=== PATIENT | female | born 1965 | race Caucasian/White ===

== ENCOUNTER 2016-05-20 06:34 | Emergency (ER) | payer OTHER ==
[2016-05-20] MEDS ORDERED: KETOROLAC 60 MG/2 ML VIAL IM STA (07:16)
--- NOTE | 2016-05-20 07:16 | ED ---
General Adult HPI - General Chief complaint: Back Pain/Injury Stated complaint: back pain Time Seen by Provider: 05/20/16 07:00 Source: patient, RN notes reviewed Mode of arrival: ambulatory Limitations: no limitations - History of Present Illness Initial comments: This is a 50-year-old female who presents to the emergency department complaining of some right-sided mid back pain. Patient states his been intermittent all week long and she thinks it might be from her bookbag because she is going to school currently. Patient states if it wasn't from the bookbag back she thinks she would have a urinary tract infection so she has no dysuria hematuria or urinary frequency. Patient denies any nausea or vomiting. Patient denies any recent fever or chills. Patient states she's already had a cholecystectomy. Patient denies any headache patient denies chest pain difficulty breathing or shortness of breath. Patient denies any cough or cold- like symptoms. 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 - Related Data Home Medications Medication Instructions Recorded Confirmed No Known Home Medications [No 05/20/16 05/20/16 Known Home Medications] Allergies Allergy/AdvReac Type Severity Reaction Status Date / Time No Known Allergies Allergy Verified 05/20/16 06:40 Review of Systems ROS Statement: Those systems with pertinent positive or pertinent negative responses have been documented in the HPI. ROS Other: All systems not noted in ROS Statement are negative. Past Medical History Past Medical History: Hypertension History of Any Multi-Drug Resistant Organisms: MRSA Date of last positivie culture/infection: 2012 MDRO Source:: Left axillary Past Surgical History: Breast Surgery, Cholecystectomy Past Psychological History: No Psychological Hx Reported Smoking Status: Never smoker Past Alcohol Use History: None Reported Past Drug Use History: None Reported General Exam - General Exam Comments Initial Comments: GENERAL: Patient is well-developed and well-nourished. Patient is nontoxic and well- hydrated and is in mild distress. ENT: Neck is soft and supple. No significant lymphadenopathy is noted. Oropharynx is clear. Moist mucous membranes. Neck has full range of motion without eliciting any pain. EYES: The sclera were anicteric and conjunctiva were pink and moist. Extraocular movements were intact and pupils were equal round and reactive to light. Eyelids were unremarkable. PULMONARY: Unlabored respirations. Good breath sounds bilaterally. No audible rales rhonchi or wheezing was noted. CARDIOVASCULAR: There is a regular rate and rhythm without any murmurs gallops or rubs. ABDOMEN: Soft and nontender with normal bowel sounds. No palpable organomegaly was noted. There is no palpable pulsatile mass. SKIN: Skin is clear with no lesions or rashes and otherwise unremarkable. NEUROLOGIC: Patient is alert and oriented x3. Cranial nerves II through XII are grossly intact. Motor and sensory are also intact. Normal speech, volume and content. Symmetrical smile. MUSCULOSKELETAL: Normal extremities with adequate strength and full range of motion. LYMPHATICS: No significant lymphadenopathy is noted PSYCHIATRIC: Normal psychiatric evaluation. Normal interpersonal interactions appears functionally intact in deals appropriately with others. No signs of depression. No signs of anxiety. Limitations: no limitations Course Vital Signs 05/20/16 06:36 Temperature 97 F L Pulse Rate 70 Respiratory 20 Rate Blood Pressure 144/80 O2 Sat by Pulse 98 Oximetry Medical Decision Making - Lab Data Result diagrams: 05/20/16 07:37 05/20/16 07:37 Lab Results 05/20/16 05/20/16 05/20/16 Range/Units 07:37 07:37 07:52 WBC 6.0 (3.8-10.6) k/uL RBC 4.67 (3.80-5.40) m/uL Hgb 13.6 (11.4-16.0) gm/dL Hct 40.3 (34.0-46.0) % MCV 86.3 (80.0-100.0) fL MCH 29.1 (25.0-35.0) pg MCHC 33.7 (31.0-37.0) g/dL RDW 12.1 (11.5-15.5) % Plt Count 297 (150-450) k/uL Neutrophils % 62 % Lymphocytes % 27 % Monocytes % 8 % Eosinophils % 1 % Basophils % 1 % Neutrophils # 3.7 (1.3-7.7) k/uL Lymphocytes # 1.6 (1.0-4.8) k/uL Monocytes # 0.5 (0-1.0) k/uL Eosinophils # 0.1 (0-0.7) k/uL Basophils # 0.1 (0-0.2) k/uL Sodium 142 (137-145) mmol/L Potassium 3.9 (3.5-5.1) mmol/L Chloride 105 (98-107) mmol/L Carbon Dioxide 26 (22-30) mmol/L Anion Gap 11 mmol/L BUN 12 (7-17) mg/dL Creatinine 0.57 (0.52-1.04) mg/dL Est GFR (MDRD) Af Amer >60 (>60 ml/min/1.73 sqM) Est GFR (MDRD) Non-Af >60 (>60 ml/min/1.73 sqM) Glucose 93 (74-99) mg/dL Calcium 9.6 (8.4-10.2) mg/dL Total Bilirubin 0.6 (0.2-1.3) mg/dL AST 24 (14-36) U/L ALT 37 (9-52) U/L Alkaline Phosphatase 58 (38-126) U/L Total Protein 6.7 (6.3-8.2) g/dL Albumin 4.1 (3.5-5.0) g/dL Urine Color Colorless Urine Appearance Clear (Clear) Urine pH 6.5 (5.0-8.0) Ur Specific Clarinda 1.002 (1.001-1.035) Urine Protein Negative (Negative) Urine Glucose (UA) Negative (Negative) Urine Ketones Negative (Negative) Urine Blood Negative (Negative) Urine Nitrate Negative (Negative) Urine Bilirubin Negative (Negative) Urine Urobilinogen <2.0 (<2.0) mg/dL Ur Leukocyte Esterase Negative (Negative) Disposition Clinical Impression: Thoracic myofascial strain Disposition: HOME SELF-CARE Condition: Good Instructions: Thoracic Back Strain (ED) Additional Instructions: Patient should take Motrin 600 mg every 6 hours. Referrals: None,Stated [Primary Care Provider] - 1-2 days Time of Disposition: 08:31
[2016-05-20 08:06] LABS: Basophils # (A) 0.1 k/uL (0-0.2); Basophils % (A) 1 %; CH 30.3; CHCM 35.3; Eosinophils # (A) 0.1 k/uL (0-0.7); Eosinophils % (A) 1 %; HCT 40.3 % (34.0-46.0); HDW 2.53; HGB 13.6 gm/dL (11.4-16.0); Luc # (Auto) 0.11; Luc % (Auto) 2; Lymphocytes # (A) 1.6 k/uL (1.0-4.8); Lymphocytes % (A) 27 %; MCH 29.1 pg (25.0-35.0); MCHC 33.7 g/dL (31.0-37.0); MCV 86.3 fL (80.0-100.0); Mean Platelet Volume 7.1; Monocytes # (A) 0.5 k/uL (0-1.0); Monocytes % (A) 8 %; Neutrophils # (A) 3.7 k/uL (1.3-7.7); Neutrophils % (A) 62 %; RBC 4.67 m/uL (3.80-5.40); RDW 12.1 % (11.5-15.5); WBC (Perox) 6.16
[2016-05-20 08:08] LABS: Appearance,Urine Clear (Clear); Bilirubin,Urine Negative (Negative); Glucose,Urine (UA) Negative (Negative); Ketones,Urine Negative (Negative); Leukocyte Esterase,Urine Negative (Negative); Nitrite,Urine Negative (Negative); PH, Urine 6.5 (5.0-8.0); Protein,Urine Negative (Negative); Specific Gravity,Urine 1.002 (1.001-1.035); UA Billing (MACRO vs. MICRO) CHEM; Urobilinogen,Urine <2.0 mg/dL (<2.0)
[2016-05-20 08:13] LABS: ALT 37 U/L (9-52); AST 24 U/L (14-36); Alkaline Phosphatase 58 U/L (38-126); Anion Gap 11 mmol/L; Blood Urea Nitrogen 12 mg/dL (7-17); Calcium 9.6 mg/dL (8.4-10.2); Carbon Dioxide 26 mmol/L (22-30); Chloride 105 mmol/L (98-107); Glucose 93 mg/dL (74-99); Non-African American GFR(MDRD) >60 (>60 ml/min/1.73 sqM); Potassium 3.9 mmol/L (3.5-5.1); Sodium 142 mmol/L (137-145); Total Bilirubin 0.6 mg/dL (0.2-1.3); Total Protein 6.7 g/dL (6.3-8.2)
[2016-05-20 08:39] VITALS: BP 125/59; PULSE 60; RESP 18; TEMP 97.2
== END 2016-05-20 08:39 | disposition home or self-care (01) ==
LOC: EC 06:34
DX: S29.019A Strain of muscle and tendon of unspecified wall of thorax, initial encounter (principal); X58.XXXA Exposure to other specified factors, initial encounter; I10 Essential (primary) hypertension
CPT/HCPCS: 36415; 80053; 85025; 81003; 96372; 99283; J1885

== ENCOUNTER 2016-06-08 09:29 | Day surgery (SDC) | payer OTHER ==
[2016-06-05 15:20] VITALS: BMI 28.5
[~2016-06-08 09:29] MED LIST: LACTATED RINGERS 1,000 ML IV SCH; LIDOCAINE 1% 20 ML VIAL (10MG/ML) FOR IV START INTRADERMA PRN
[2016-06-08 10:06] VITALS: RESP 16; TEMP 98
[2016-06-08] MEDS ORDERED: fentaNYL (PF) 50 MCG/ML 2 ML AMP IV ONE (10:25)
[2016-06-08] MEDS ORDERED: MIDAZOLAM 2 MG/2 ML VIAL ONE (10:51)
[2016-06-08] MEDS ORDERED: fentaNYL (PF) 50 MCG/ML 2 ML AMP ONE (10:51)
[2016-06-08] MEDS ORDERED: PROPOFOL 10 MG/ML 20 ML VIAL IV ONE (10:51)
--- NOTE | 2016-06-08 11:23 | P.PCN ---
Date of Procedure: 06/08/16 Procedure(s) Performed: Procedure: 1. Esophagogastroduodenoscopy and biopsy. 2. Total colonoscopy. Preoperative diagnosis: Dysphagia and screening colonoscopy. Postoperative diagnosis: 1. Small sliding hiatal hernia with no obvious esophagitis or complicated reflux disease. 2. Mild antral gastritis. 3. Colon exam within normal limits. Preparation: HalfLytely prep. Sedation: Was provided by anesthesia. Brief clinical history: The patient is a 50-year-old female who is referred for this evaluation because of recent onset of dysphagia as well as for screening for colon cancer. She had a prior colonoscopy in 2007 or 2008. The patient has no abdominal complaints, bleeding or anemia. Procedure: With the patient on her left lateral decubitus position and after informed consent and adequate sedation, I passed the Olympus-GIF 160 video upper endoscope through the cricopharyngeus down the esophagus. GE junction was around 37-38 cm from the incisors and there was a small sliding hiatal hernia. The esophagus did not show any obvious erosions, ulcers, strictures or Leahy's esophagus. The endoscope was then passed into the stomach which was insufflated with air and inspected in detail including the retroflex view in the cardia. There was some minimal mottling and erythema in the antrum but no ulcers or erosions. Pyloric channel did not show any ulcers. Duodenal bulb, post bulbar area and descending duodenum showed minimal erythema. I obtained multiple biopsies from the duodenum, antrum and esophagus then the endoscope was withdrawn and I proceeded with the colonoscopy. Perianal area did not show any fissures or fistulas. There were no masses felt on digital rectal examination. The Olympus CFQ 160L video colonoscope was then inserted in the rectum in the usual fashion and advanced to the cecum. The mucosa appeared healthy. No polyps or tumors were seen or any obvious diverticular disease or other pathology. I retroflexed endoscope in the rectum before the endoscope was withdrawn. The patient tolerated the procedure well. Plan: The patient was reassured. Will await pathology results. Further plans can be made based on her course and biopsy results. She will follow-up with you as planned and I will be happy to see in the office of his symptoms persist.
[2016-06-08 11:56] VITALS: BP 126/88; PULSE 69
== END 2016-06-08 12:05 | disposition home or self-care (01) ==
LOC: ORWHC2ENDO 09:29
DX: Z12.11 Encounter for screening for malignant neoplasm of colon (principal); K29.50 Unspecified chronic gastritis without bleeding; K44.9 Diaphragmatic hernia without obstruction or gangrene; R13.10 Dysphagia, unspecified; I10 Essential (primary) hypertension; Z79.1 Long term (current) use of non-steroidal anti-inflammatories (NSAID); Z79.899 Other long term (current) drug therapy; Z91.040 Latex allergy status; Z91.013 Allergy to seafood
CPT/HCPCS: 88305; 88342; 43239; J2250; J3010; J2704; G0121; 99153

== ENCOUNTER → 2017-01-03 | Outpatient (CLI) | payer OTHER ==
[2017-01-03 11:35] LABS: Hepatitis B Surface Ag Index 0.04
[2017-01-03 11:53] LABS: Hepatitis C Virus IgG Ab Negative (Negative); Hepatitis C Virus IgG Index 0.01
--- NOTE | 2017-01-03 15:17 | WWHP ---
[facility] - HISTORY AND PHYSICAL DATE OF SERVICE: 01/03/2017 CHIEF COMPLAINT: The patient is here for her routine gynecologic exam. HPI: This is a 51-year-old, G6, P5-0-1-4 with an LMP of 2012. The patient denies any postmenopausal bleeding. She states she has been experiencing abdominal bloating and slight cramping during the past 1 month. She states it feels like her period is about to start. The patient is otherwise without gynecologic complaints. PAST MEDICAL HISTORY: Depression. MEDICATIONS: 1. Ranitidine 150 mg q. day p.r.n. 2. Multivitamin 1 daily. ALLERGIES: SHELLFISH and LATEX. PAST SURGICAL HISTORY: Colonoscopy in 2010 and 2016, breast augmentation surgery with saline implants 2002, section 2004, laparoscopic cholecystectomy 2007, cold knife conization of the cervix 1997. PAST W[employer] C[employer]ER HISTORY: She had a cold knife conization of the cervix in 1997. She has no other history of STDs. SOCIAL HISTORY: She denies tobacco, alcohol, and drug use. She is and has not been sexually active since she was last seen on 06/30/2015. 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 FAMILY HISTORY: Father had diabetes and heart disease. Grandmother had diabetes. REVIEW OF SYSTEMS: She has gained about 11 pounds over the last year. She denies respiratory, cardiac or GI problems. PHYSICAL EXAM: Blood pressure 131/76, height 5 feet 4 inches, weight 169 pounds. Temperature 98.5, pulse 69. This is a well-developed, well-nourished white female who is alert and oriented x3, in no acute distress. HEENT is within normal limits. NECK: Supple without mass or thyromegaly. CHEST AND LUNGS: Clear to auscultation. HEART: Regular rate and rhythm. Breasts are without mass or discharge and are consistent with bilateral implants. Axillary exam is negative for adenopathy. Back negative for CVA tenderness. ABDOMEN: Soft, nontender, without palpable masses. PELVIC EXAM: Normal external genitalia. Cervix and vagina appear normal. There is mild atrophy and there is no unusual discharge. There is no cervical motion tenderness. The uterus is mid position, nongravid size and nontender. There are no palpable adnexal masses; however, there is mild right adnexal tenderness with deep palpation. Rectovaginal exam is negative for mass or tenderness is negative for occult blood. EXTREMITIES: Nontender. IMPRESSION: 1. A 51-year-old menopausal female with mild right adnexal tenderness without a palpable mass. 2. One-month history of abdominal bloating. 3. Negative STD testing last year after possible STD exposure. She has not been sexually active since her last examination on 06/30/2015. PLAN: 1. Pap smear was deferred since she had a normal one last year. 2. Self breast examination was discussed. 3. Mammogram is due and a slip was give to the patient for this. 4. STD blood screening tests were recommended and this will include HIV, hepatitis B surface antigen, hepatitis C antibody and RPR. This will be done because her testing was done soon after her possible STD exposure and she understands that it may be more than 6 months before certain tests may turn positive, so these will be repeated. 5. Pelvic ultrasound will be scheduled because of the abdominal bloating. 6. Osteoporosis prevention was discussed. 7. She will return in 1 year. MMODL / IJN: [id number] /
[2017-01-03 15:40] LABS: Treponemal Ab Non-Reactive (Non-Reactive)
== END | disposition home or self-care (01) ==
LOC: WWCWWP 09:26
PROVIDERS: ATTEND Obstetrics & Gynecology
DX: Z11.3 Encounter for screening for infections with a predominantly sexual mode of transmission (principal)
CPT/HCPCS: 36415; 86780; 86803; 87340; 87390

== ENCOUNTER → 2017-01-16 | Outpatient (CLI) | payer OTHER ==
--- NOTE | 2017-01-16 09:37 | US ---
EXAMINATION TYPE: US pelvic complete DATE OF EXAM: 01/16/2017 COMPARISON: NONE CLINICAL HISTORY: R68.89 ABN PELVIC PAIN,R14.0 ABD BLOATING. Pt states RLQ tenderness and bloating TECHNIQUE: Transabdominal (TA) Date of LMP: 3 years ago EXAM MEASUREMENTS: Uterus: 6.9 x 3.2 x 4.2 cm Endometrial Stripe: 0.4 cm Right Ovary: 2.1 x 0.9 x 1.5 cm Left Ovary: 2.0 x 1.1 x 1.8 cm 1. Uterus: Anteverted Appeared wnl 2. Endometrium: wnl 3. Right Ovary: wnl 4. Left Ovary: wnl 5. Bilateral Adnexa: wnl 6. Posterior cul-de-sac: wnl, bowel visualized IMPRESSION: 1. No acute process.
--- NOTE | 2017-01-18 07:55 | MM ---
Reason for exam: screening (asymptomatic). Last mammogram was performed 1 year and 7 months ago. History: Patient is postmenopausal. Implants in both breasts, 2003. Physical Findings: A clinical breast exam by your physician is recommended on an annual basis and results should be correlated with mammographic findings. MG Screening Mammo Implant/CAD Bilateral CC, MLO, and ID view(s) were taken. Prior study comparison: June 30, 2015, bilateral MG screening mammo implant/CAD. April 28, 2014, bilateral MG screening mammo w CAD. The breast tissue is heterogeneously dense. This may lower the sensitivity of mammography. Bilateral saline implants. ASSESSMENT: Negative, BI-RAD 1 RECOMMENDATION: Routine screening mammogram of both breasts in 1 year.
== END | disposition home or self-care (01) ==
LOC: RADUSWWP 08:55
PROVIDERS: ATTEND Obstetrics & Gynecology
DX: Z12.31 Encounter for screening mammogram for malignant neoplasm of breast (principal); R14.0 Abdominal distension (gaseous); R10.819 Abdominal tenderness, unspecified site
CPT/HCPCS: 76856; G0202

== ENCOUNTER 2017-07-14 19:45 | Emergency (ER) | payer OTHER ==
[2017-07-14 20:06] VITALS: BP 144/99; PULSE 105; RESP 20; TEMP 99.4
--- NOTE | 2017-07-14 20:23 | ED ---
ENT HPI - General Chief complaint: ENT Stated complaint: Ear pain Time Seen by Provider: 07/14/17 20:13 Source: patient Mode of arrival: ambulatory Limitations: no limitations - History of Present Illness Initial comments: 52-year-old female patient presents to the emergency department today for complaints of right ear discomfort and a tickling sensation. She is concerned there might be a bug in her ear. Patient states that she has had this tickly pokey sensation for the last 3 days. States that that sensation did resolve today but she did start having right ear discomfort. Patient states the discomfort extends below the ear. She denies any drainage from the ear. She denies any sore throat or cough. States that she does have chronic nasal congestion due to seasonal ALLERGIES. She denies any fevers or chills. Denies any headache. Patient denies any recent rash, shortness breath, chest pain, abdominal pain, nausea, vomiting, diarrhea, constipation, back pain, numbness, tingling, dizziness, weakness, hematuria, dysuria, urinary urgency, urinary frequency, headache, visual changes, or any other complaints. - Related Data Home Medications Medication Instructions Recorded Confirmed Cetirizine HCl [Zyrtec] 10 mg PO DAILY 06/05/16 06/08/16 Cyclobenzaprine [Flexeril] 10 mg PO DAILY PRN 06/05/16 06/08/16 Ibuprofen [Motrin] 400 mg PO BID 06/05/16 06/08/16 Omeprazole [PriLOSEC] 20 mg PO AC-BID 06/05/16 06/08/16 diphenhydrAMINE HCL [Benadryl] 25 mg pe PO DAILY PRN 06/05/16 06/08/16 Previous Rx's Medication Instructions Recorded Amoxicillin/Potassium Clav 1 tab PO Q12HR #20 tab 03/30/17 [Augmentin 875-125 Tablet] predniSONE 50 mg PO DAILY #5 tab 03/30/17 Allergies Allergy/AdvReac Type Severity Reaction Status Date / Time latex Allergy Rash/Hives Verified 07/14/17 20:06 shellfish derived [Shellfish] Allergy Nausea & Verified 07/14/17 20:06 Vomiting, Hives Review of Systems ROS Statement: Those systems with pertinent positive or pertinent negative responses have been documented in the HPI. ROS Other: All systems not noted in ROS Statement are negative. Past Medical History Past Medical History: Hypertension Additional Past Medical History / Comment(s): difficulty swallowing History of Any Multi-Drug Resistant Organisms: MRSA Date of last positivie culture/infection: 2012 MDRO Source:: Left axillary Past Surgical History: Breast Surgery, Cholecystectomy Past Anesthesia/Blood Transfusion Reactions: Motion Sickness Past Psychological History: No Psychological Hx Reported Smoking Status: Never smoker Past Alcohol Use History: None Reported Past Drug Use History: None Reported - Past Family History Brother(s) Family Medical History: Deep Vein Thrombosis (DVT) General Exam Limitations: no limitations General appearance: alert, in no apparent distress, other (This is a well- developed, well-nourished adult female patient in no acute distress. Vital signs upon presentation are temperature 99.4F, pulse 105, respirations 20, blood pressure 144/99, pulse ox 96% on room air.) Eye exam: Present: normal appearance, PERRL, EOMI. Absent: scleral icterus, conjunctival injection, periorbital swelling ENT exam: Present: normal exam, normal oropharynx, mucous membranes moist, TM's normal bilaterally, other (Right tympanic membrane is within normal limits. Right external auditory canal is without lesion, erythema, or drainage. The right mastoid is nontender.) Respiratory exam: Present: normal lung sounds bilaterally. Absent: respiratory distress, wheezes, rales, rhonchi, stridor Cardiovascular Exam: Present: regular rate, normal rhythm, normal heart sounds. Absent: systolic murmur, diastolic murmur, rubs, gallop, clicks Neurological exam: Present: alert, oriented X3, CN II-XII intact Psychiatric exam: Present: normal affect, normal mood Skin exam: Present: warm, dry, intact, normal color. Absent: rash Course Vital Signs 07/14/17 20:04 Temperature 99.4 F Pulse Rate 105 H Respiratory 20 Rate Blood Pressure 144/99 O2 Sat by Pulse 96 Oximetry Medical Decision Making - Medical Decision Making 52-year-old female patient presented to the emergency department today for evaluation of right ear discomfort and concerns of the ear foreign body namely a bug. Physical examination is unremarkable. Tympanic membrane is normal. External auditory canals normal. We did discuss possibility of eustachian tube dysfunction with her history of ALLERGIES. She is instructed to take an over- the-counter nasal decongestant such as a Claritin-D or Zyrtec-D. She is instructed to chew gum as well. She is instructed to follow up with her primary care physician to discuss possible referral to ENT for symptoms are not improved. She is instructed to return here immediate for any new, worsening, or concerning symptoms. She verbalizes understanding and agrees this plan. Disposition Clinical Impression: Eustachian tube dysfunction Disposition: HOME SELF-CARE Condition: Good Instructions: Earache (ED) Additional Instructions: Use [id number] Claritin-D or Zyrtec-D as a decongestant. Chew chewing gum. Follow-up with her primary care physician for recheck in 1-2 days. Return here immediately for any new, worsening, or concerning symptoms. Referrals: Yuri Carrion MD [Primary Care Provider] - 1-2 days Time of Disposition: 20:23
== END 2017-07-14 20:30 | disposition home or self-care (01) ==
LOC: EC 19:45
DX: H69.91 Unspecified Eustachian tube disorder, right ear (principal); Z86.14 Personal history of Methicillin resistant Staphylococcus aureus infection; Z79.1 Long term (current) use of non-steroidal anti-inflammatories (NSAID); Z79.899 Other long term (current) drug therapy; Z91.040 Latex allergy status; Z91.013 Allergy to seafood
CPT/HCPCS: 99282

== ENCOUNTER 2017-09-19 10:27 | Emergency (ER) | payer OTHER ==
[2017-09-19 10:39] VITALS: RESP 18
[2017-09-19] MEDS ORDERED: ONDANSETRON 4 MG/2 ML VIAL IVP STA (10:49)
[2017-09-19] MEDS ORDERED: SODIUM CHLORIDE 0.9% 1,000 ML IV STA (10:49)
[2017-09-19] MEDS ORDERED: FAMOTIDINE 20 MG/2 ML VIAL IV STA (10:50)
--- NOTE | 2017-09-19 10:54 | ED ---
General Adult HPI - General Chief complaint: Nausea/Vomiting/Diarrhea Stated complaint: Vomiting Time Seen by Provider: 09/19/17 10:41 Source: patient, RN notes reviewed Mode of arrival: ambulatory Limitations: no limitations - History of Present Illness Initial comments: 52-year-old female presenting to the emergency room today with chief complaint of symptoms of nausea vomiting diarrhea that started yesterday. Patient states she woke up yesterday with symptoms of feeling nauseous and having vomiting. She states it continued throughout the day. She states that began feeling a little better throughout the day. Waking up this morning with diarrhea. States still feeling nauseated no vomiting today. Patient does admit to some cramping in the abdomen. She denies any other complaints or symptoms. Patient denies any recent fever, chills, shortness of breath, chest pain, back pain, numbness or tingling, dysuria or hematuria, constipation, headaches or visual changes, or any other complaints. - Related Data Home Medications Medication Instructions Recorded Confirmed Ascorbic Acid [Vitamin C] 500 mg PO DAILY 09/19/17 09/19/17 Omeprazole [PriLOSEC] 10 mg PO DAILY PRN 09/19/17 09/19/17 Pnv,Calcium 72/Iron/Folic Acid 1 tab PO DAILY 09/19/17 09/19/17 [ Plus Tablet] Ranitidine HCl [Zantac] 75 mg PO HS 09/19/17 09/19/17 Previous Rx's Medication Instructions Recorded Ondansetron Odt [Zofran ODT] 4 mg PO Q8HR PRN #20 tab 09/19/17 Sulfamethox-Tmp 800-160Mg [Bactrim 1 tab PO Q12HR #6 tab 09/19/17 DS 800-160 mg] Allergies Allergy/AdvReac Type Severity Reaction Status Date / Time latex Allergy Rash/Hives Verified 09/19/17 10:53 shellfish derived [Shellfish] Allergy Nausea & Verified 09/19/17 10:53 Vomiting, Hives Review of Systems ROS Statement: Those systems with pertinent positive or pertinent negative responses have been documented in the HPI. ROS Other: All systems not noted in ROS Statement are negative. Past Medical History Past Medical History: Hypertension Additional Past Medical History / Comment(s): difficulty swallowing History of Any Multi-Drug Resistant Organisms: MRSA Date of last positivie culture/infection: 2013 MDRO Source:: Left axillary Past Surgical History: Breast Surgery, Cholecystectomy Past Anesthesia/Blood Transfusion Reactions: Motion Sickness Past Psychological History: No Psychological Hx Reported Smoking Status: Never smoker Past Alcohol Use History: None Reported Past Drug Use History: None Reported - Past Family History Brother(s) Family Medical History: Deep Vein Thrombosis (DVT) General Exam - General Exam Comments Initial Comments: General: The patient is awake and alert, in no distress, and does not appear acutely ill. Eye: Pupils are equal, round and reactive to light, extra-ocular movements are intact. No nystagmus. There is normal conjunctiva bilaterally. No signs of icterus. Ears, nose, mouth and throat: There are moist mucous membranes and no oral lesions. Neck: The neck is supple, there is no tenderness or JVD. Cardiovascular: There is a regular rate and rhythm. No murmur, rub or gallop is appreciated. Respiratory: Lungs are clear to auscultation, respirations are non-labored, breath sounds are equal. No wheezes, stridor, rales, or rhonchi. Gastrointestinal: Soft on palpation. Mild tenderness epigastric and upper quadrant on left. No rebound tenderness. No guarding No CVA tenderness. Musculoskeletal: Normal ROM, no tenderness. Strength 5/5. Sensation intact. Neurological: A&O x 3. CN II-XII intact, There are no obvious motor or sensory deficits. Coordination appears grossly intact. Speech is normal. Skin: Skin is warm and dry and no rashes or lesions are noted. Psychiatric: Cooperative, appropriate mood & affect, normal judgment. Limitations: no limitations Course Vital Signs 09/19/17 09/19/17 10:36 11:39 Temperature 98.2 F Pulse Rate 121 H 83 Respiratory 18 18 Rate Blood Pressure 143/95 163/77 O2 Sat by Pulse 98 95 Oximetry Medical Decision Making - Medical Decision Making Patient's CT reviewed and does show inflammation around the stomach consistent with a gastritis. Patient did have multiple episodes of nausea vomiting yesterday. Patient labs been reviewed. Does show some calcium oxalate in the urine with 9 white cells and a few red cells. Patient denies any known history of kidney stones. No kidney stones or hydronephrosis seen on CT. Patient will be placed on antibiotics cover for a UTI. Patient given nausea medication for symptoms. She is advised follow-up family doctor in the next 2 days. Advised return if any symptoms increase worsen. - Lab Data Result diagrams: 09/19/17 11:28 09/19/17 11:28 Lab Results 09/19/17 09/19/17 09/19/17 Range/Units 11:20 11:20 11:28 WBC (3.8-10.6) k/uL RBC (3.80-5.40) m/uL Hgb (11.4-16.0) gm/dL Hct (34.0-46.0) % MCV (80.0-100.0) fL MCH (25.0-35.0) pg MCHC (31.0-37.0) g/dL RDW (11.5-15.5) % Plt Count (150-450) k/uL Neutrophils % % Lymphocytes % % Monocytes % % Eosinophils % % Basophils % % Neutrophils # (1.3-7.7) k/uL Lymphocytes # (1.0-4.8) k/uL Monocytes # (0-1.0) k/uL Eosinophils # (0-0.7) k/uL Basophils # (0-0.2) k/uL Sodium 142 (137-145) mmol/L Potassium 4.0 (3.5-5.1) mmol/L Chloride 104 (98-107) mmol/L Carbon Dioxide 24 (22-30) mmol/L Anion Gap 14 mmol/L BUN 18 H (7-17) mg/dL Creatinine 0.47 L (0.52-1.04) mg/dL Est GFR (CKD-EPI)AfAm >90 (>60 ml/min/1.73 sqM) Est GFR (CKD-EPI)NonAf >90 (>60 ml/min/1.73 sqM) Glucose 102 H (74-99) mg/dL Calcium 10.5 H (8.4-10.2) mg/dL Total Bilirubin 0.7 (0.2-1.3) mg/dL AST 30 (14-36) U/L ALT 47 (9-52) U/L Alkaline Phosphatase 65 (38-126) U/L Total Protein 6.5 (6.3-8.2) g/dL Albumin 4.4 (3.5-5.0) g/dL Amylase 52 (30-110) U/L Lipase 67 (23-300) U/L Urine Color Yellow Urine Appearance Cloudy H (Clear) Urine pH 5.0 (5.0-8.0) Ur Specific Unity 1.022 (1.001-1.035) Urine Protein Trace H (Negative) Urine Glucose (UA) Negative (Negative) Urine Ketones Negative (Negative) Urine Blood Small H (Negative) Urine Nitrite Negative (Negative) Urine Bilirubin Negative (Negative) Urine Urobilinogen 2.0 (<2.0) mg/dL Ur Leukocyte Esterase Large H (Negative) Urine RBC 15 H (0-5) /hpf Urine WBC 9 H (0-5) /hpf Ur Squamous Epith Cells 3 (0-4) /hpf Calcium Oxalate Crystal Occasional H (None) /hpf Hyaline Casts 5 H (0-2) /lpf Urine Mucus Many H (None) /hpf Urine HCG, Qual Not Detected (Not Detectd) 09/19/17 Range/Units 11:28 WBC 4.5 (3.8-10.6) k/uL RBC 5.16 (3.80-5.40) m/uL Hgb 14.8 (11.4-16.0) gm/dL Hct 42.6 (34.0-46.0) % MCV 82.6 (80.0-100.0) fL MCH 28.7 (25.0-35.0) pg MCHC 34.7 (31.0-37.0) g/dL RDW 12.2 (11.5-15.5) % Plt Count 334 (150-450) k/uL Neutrophils % 59 % Lymphocytes % 31 % Monocytes % 6 % Eosinophils % 1 % Basophils % 0 % Neutrophils # 2.7 (1.3-7.7) k/uL Lymphocytes # 1.4 (1.0-4.8) k/uL Monocytes # 0.3 (0-1.0) k/uL Eosinophils # 0.0 (0-0.7) k/uL Basophils # 0.0 (0-0.2) k/uL Sodium (137-145) mmol/L Potassium (3.5-5.1) mmol/L Chloride (98-107) mmol/L Carbon Dioxide (22-30) mmol/L Anion Gap mmol/L BUN (7-17) mg/dL Creatinine (0.52-1.04) mg/dL Est GFR (CKD-EPI)AfAm (>60 ml/min/1.73 sqM) Est GFR (CKD-EPI)NonAf (>60 ml/min/1.73 sqM) Glucose (74-99) mg/dL Calcium (8.4-10.2) mg/dL Total Bilirubin (0.2-1.3) mg/dL AST (14-36) U/L ALT (9-52) U/L Alkaline Phosphatase (38-126) U/L Total Protein (6.3-8.2) g/dL Albumin (3.5-5.0) g/dL Amylase (30-110) U/L Lipase (23-300) U/L Urine Color Urine Appearance (Clear) Urine pH (5.0-8.0) Ur Specific Unity (1.001-1.035) Urine Protein (Negative) Urine Glucose (UA) (Negative) Urine Ketones (Negative) Urine Blood (Negative) Urine Nitrite (Negative) Urine Bilirubin (Negative) Urine Urobilinogen (<2.0) mg/dL Ur Leukocyte Esterase (Negative) Urine RBC (0-5) /hpf Urine WBC (0-5) /hpf Ur Squamous Epith Cells (0-4) /hpf Calcium Oxalate Crystal (None) /hpf Hyaline Casts (0-2) /lpf Urine Mucus (None) /hpf Urine HCG, Qual (Not Detectd) Disposition Clinical Impression: Nausea vomiting and diarrhea, UTI (urinary tract infection) Disposition: HOME SELF-CARE Condition: Good Instructions: Acute Nausea and Vomiting (ED) Additional Instructions: Please use medication as discussed. Please follow-up with family doctor in the next 2 days of symptoms have not improved. Please return to emergency room if the symptoms increase or worsen or for any other concerns. Prescriptions: Ondansetron Odt [Zofran ODT] 4 mg PO Q8HR PRN #20 tab PRN Reason: Nausea Sulfamethox-Tmp 800-160Mg [Bactrim DS 800-160 mg] 1 tab PO Q12HR #6 tab Is patient prescribed a controlled substance at d/c from ED?: No Referrals: Yuri Carrion MD [Primary Care Provider] - 1-2 days Time of Disposition: 14:00
[2017-09-19 11:39] LABS: Basophils % (A) 0 %; Eosinophils % (A) 1 %; HCT 42.6 % (34.0-46.0); HGB 14.8 gm/dL (11.4-16.0); Lymphocytes # (A) 1.4 k/uL (1.0-4.8); Lymphocytes % (A) 31 %; MCH 28.7 pg (25.0-35.0); MCHC 34.7 g/dL (31.0-37.0); MCV 82.6 fL (80.0-100.0); Mean Platelet Volume 6.8; Monocytes # (A) 0.3 k/uL (0-1.0); Monocytes % (A) 6 %; Neutrophils # (A) 2.7 k/uL (1.3-7.7); Neutrophils % (A) 59 %; Platelet Count 334 k/uL (150-450); RBC 5.16 m/uL (3.80-5.40); RDW 12.2 % (11.5-15.5); WBC 4.5 k/uL (3.8-10.6)
[2017-09-19 11:44] LABS: Appearance,Urine Cloudy (Clear); Bilirubin,Urine Negative (Negative); Blood,Urine Small (Negative); Calcium Oxalate Crystals,Urine Occasional /hpf; Color,Urine Yellow; Glucose,Urine (UA) Negative (Negative); Hyaline Casts,Urine 5 /lpf (0-2); Ketones,Urine Negative (Negative); Leukocyte Esterase,Urine Large (Negative); Mucus,Urine Many /hpf; Nitrite,Urine Negative (Negative); Protein,Urine Trace (Negative); RBC,Urine 15 /hpf (0-5); Specific Gravity,Urine 1.022 (1.001-1.035); Squamous Epithelial Cell,Urine 3 /hpf (0-4); WBC,Urine 9 /hpf (0-5)
[2017-09-19 12:02] LABS: ALT 47 U/L (9-52); AST 30 U/L (14-36); Albumin 4.4 g/dL (3.5-5.0); Alkaline Phosphatase 65 U/L (38-126); Amylase 52 U/L (30-110); Anion Gap 14 mmol/L; Blood Urea Nitrogen 18 mg/dL (7-17); Calcium 10.5 mg/dL (8.4-10.2); Carbon Dioxide 24 mmol/L (22-30); Chloride 104 mmol/L (98-107); Glucose 102 mg/dL (74-99); Lipase 67 U/L (23-300); Sodium 142 mmol/L (137-145); Total Bilirubin 0.7 mg/dL (0.2-1.3); Total Protein 6.5 g/dL (6.3-8.2)
--- NOTE | 2017-09-19 13:00 | XR ---
EXAMINATION TYPE: XR KUB DATE OF EXAM: 09/19/2017 COMPARISON: NONE HISTORY: Pain TECHNIQUE: KUB image of the abdomen is obtained FINDINGS: Small bowel demonstrates no evidence for dilatation or air fluid levels. Gas and fecal material is seen in non-distended colon. No convincing evidence for pneumoperitoneum. No unusual calcifications. The lung bases are clear. The osseous structures are intact. IMPRESSION: 1. Overall nonobstructive bowel gas pattern.
--- NOTE | 2017-09-19 13:50 | CT ---
EXAMINATION TYPE: CT abdomen pelvis wo con DATE OF EXAM: 09/19/2017 COMPARISON: NONE HISTORY: Nausea, vomiting, and diarrhea CT DLP: 327.3 mGycm Automated exposure control for dose reduction was used. TECHNIQUE: Helical acquisition of images was performed from the lung bases through the pelvis. FINDINGS: Lack of intravenous and oral contrast limits evaluation of both the hollow and solid viscer a. LUNG BASES: Bibasilar pleural parenchymal scarring is present. LIVER/GB: Gallbladder surgically absent. Liver is grossly unremarkable. PANCREAS: No significant abnormality is seen. No ductal dilatation. SPLEEN: No significant abnormality is seen. No spinal megaly. ADRENALS: No nodularity or thickening. KIDNEYS: No nephrolithiasis or hydronephrosis. FREE AIR: No free air is visualized RETROPERITONEAL ADENOPATHY: No greater than 1 cm short axis lymph nodes are seen within the abdomen or pelvis. REPRODUCTIVE ORGANS: No significant abnormality is seen URINARY BLADDER: No significant abnormality is seen. OSSEOUS STRUCTURES: No significant abnormality is seen. Minimal degenerative changes of the spine ar e noted. BOWEL: The appendix is within normal limits of size measuring 6 mm without periappendiceal fat stran ding low-lying within the pelvis bowel is nondilated. No suspicious air-fluid levels are seen. Stomac h is poorly evaluated due to lack of oral contrast and incomplete distention, however there is mild c ircumferential gastric thickening that could relate to gastritis. IMPRESSION: NO EVIDENCE OF BOWEL OBSTRUCTION. APPENDIX IS WITHIN NORMAL LIMITS IN SIZE WITHOUT PERIAPPENDICEAL FA T STRANDING. NO HYDRONEPHROSIS OR NEPHROLITHIASIS. MILD CIRCUMFERENTIAL MUCOSAL THICKENING IS SEEN OF THE STOMACH THAT COULD RELATE TO GASTRITIS OR INCOMPLETE DISTENTION.
[2017-09-19 14:25] VITALS: BP 125/71; PULSE 72; TEMP 99.3
== END 2017-09-19 14:34 | disposition home or self-care (01) ==
LOC: EC 10:27
DX: N39.0 Urinary tract infection, site not specified (principal); R11.2 Nausea with vomiting, unspecified; R19.7 Diarrhea, unspecified; K31.89 Other diseases of stomach and duodenum; Z79.899 Other long term (current) drug therapy; Z91.013 Allergy to seafood; Z91.040 Latex allergy status; Z86.14 Personal history of Methicillin resistant Staphylococcus aureus infection; Z90.49 Acquired absence of other specified parts of digestive tract
CPT/HCPCS: 36415; 80053; 82150; 83690; 85025; 81001; 81025; 74018; 74176; 99284; 96374; 96375; 96361; J2405

== ENCOUNTER 2019-04-14 14:53 | Emergency (ER) | payer OTHER ==
[2019-04-14 15:57] VITALS: RESP 18
--- NOTE | 2019-04-14 17:33 | ED ---
ENT HPI - General Chief complaint: ENT Stated complaint: feels like throat closing, thyroid problems Time Seen by Provider: 04/14/19 17:04 Source: patient, RN notes reviewed Mode of arrival: ambulatory Limitations: no limitations - History of Present Illness Initial comments: 53-year-old female presents emergency Department chief complaint of intermittent difficulty swelling. Patient states that she typically has trouble eating white need such as chicken or port. Patient states that it seems to stick in her throat. Patient states she drinks more sometimes it pushed it down sometimes she coughs it back up. She has no current symptoms. Patient denies any fevers, chills, difficulty breathing. She had a recent thyroid ultrasound which was normal and no changes from prior. She thought it was related to her thyroid. Patient has never had an EGD she does admit that she has GERD symptoms occasionally. symptoms no chest pain - Related Data Home Medications Medication Instructions Recorded Confirmed Ascorbic Acid [Vitamin C] 500 mg PO DAILY 09/19/17 09/19/17 Omeprazole [PriLOSEC] 10 mg PO DAILY PRN 09/19/17 09/19/17 Pnv,Calcium 72/Iron/Folic Acid 1 tab PO DAILY 09/19/17 09/19/17 [ Plus Tablet] Ranitidine HCl [Zantac] 75 mg PO HS 09/19/17 09/19/17 Previous Rx's Medication Instructions Recorded Ondansetron Odt [Zofran ODT] 4 mg PO Q8HR PRN #20 tab 09/19/17 Sulfamethox-Tmp 800-160Mg [Bactrim 1 tab PO Q12HR #6 tab 09/19/17 DS 800-160 mg] Allergies Allergy/AdvReac Type Severity Reaction Status Date / Time latex Allergy Rash/Hives Verified 04/14/19 15:57 shellfish derived [Shellfish] Allergy Nausea & Verified 04/14/19 15:57 Vomiting, Hives Review of Systems ROS Statement: Those systems with pertinent positive or pertinent negative responses have been documented in the HPI. ROS Other: All systems not noted in ROS Statement are negative. Past Medical History Past Medical History: Hypertension, Thyroid Disorder Additional Past Medical History / Comment(s): difficulty swallowing History of Any Multi-Drug Resistant Organisms: MRSA Date of last positivie culture/infection: 2012 MDRO Source:: Left axillary Past Surgical History: Breast Surgery, Cholecystectomy Past Anesthesia/Blood Transfusion Reactions: Motion Sickness Past Psychological History: ADD/ADHD Smoking Status: Never smoker Past Alcohol Use History: None Reported Past Drug Use History: None Reported - Past Family History Brother(s) Family Medical History: Deep Vein Thrombosis (DVT) General Exam Limitations: no limitations General appearance: alert, in no apparent distress Head exam: Present: atraumatic, normocephalic, normal inspection Eye exam: Present: normal appearance, PERRL, EOMI. Absent: scleral icterus, conjunctival injection, periorbital swelling ENT exam: Present: normal oropharynx, mucous membranes moist, TM's normal bilaterally, normal external ear exam Neck exam: Present: normal inspection, full ROM. Absent: tenderness, meningismus, lymphadenopathy Respiratory exam: Present: normal lung sounds bilaterally. Absent: respiratory distress, wheezes, rales, rhonchi, stridor, chest wall tenderness Cardiovascular Exam: Present: regular rate, normal rhythm, normal heart sounds. Absent: systolic murmur, diastolic murmur, rubs, gallop, clicks GI/Abdominal exam: Present: soft. Absent: tenderness Course Vital Signs 04/14/19 04/14/19 15:52 18:19 Temperature 98.5 F 98.2 F Pulse Rate 72 55 L Respiratory 18 18 Rate Blood Pressure 144/86 131/81 O2 Sat by Pulse 96 96 Oximetry Medical Decision Making - Medical Decision Making Patient is no current distress, x-rays unremarkable. Patient will follow-up the GI for an EGD. Return parameters were discussed. Disposition Clinical Impression: Swallowing difficulty Disposition: HOME SELF-CARE Condition: Stable Instructions (If sedation given, give patient instructions): Dysphagia (ED) Additional Instructions: Please return to the Emergency Department if symptoms worsen or any other concerns. Is patient prescribed a controlled substance at d/c from ED?: No Referrals: Yuri Carrion MD [Primary Care Provider] - 1-2 days Nadeem Valenzuela MD [STAFF PHYSICIAN] - 1-2 days Time of Disposition: 18:51
[2019-04-14 18:20] VITALS: BP 131/81; PULSE 55; TEMP 98.2
--- NOTE | 2019-04-14 18:47 | XR ---
EXAMINATION TYPE: XR soft tissue neck DATE OF EXAM: 04/14/2019 COMPARISON: NONE HISTORY: Difficulty swallowing TECHNIQUE: 2 views FINDINGS: Epiglottis is normal. Subglottic trachea appears normal. Prevertebral soft tissues appear n ormal. There is no sign of a foreign body. IMPRESSION: Negative cervical soft tissue exam.
== END 2019-04-14 18:53 | disposition home or self-care (01) ==
LOC: EC 14:53
DX: R13.10 Dysphagia, unspecified (principal); Z86.14 Personal history of Methicillin resistant Staphylococcus aureus infection; Z79.899 Other long term (current) drug therapy; Z91.040 Latex allergy status; Z91.013 Allergy to seafood
CPT/HCPCS: 70360; 99284

== ENCOUNTER → 2019-10-21 | Outpatient (CLI) | payer OTHER ==
[2019-10-21 14:00] VITALS: BP 153/92; PULSE 67; RESP 18; TEMP 98.5
--- NOTE | 2019-10-21 14:47 | P.HPOB ---
History of Present Illness H&P Date: 10/21/19 Chief Complaint: Left breast areola sensitivity for 1-2 weeks. Chief Complaint: Left breast areola sensitivity for 1-2 weeks. HPI: This is a 54-year-old 014 with an LMP of 2012. The patient developed left breast areola sensitivity about 1-2 weeks ago. She has not noticed any change in appearance and has not felt any masses. She denies any nipple discharge. She states the areola feels swollen. She denies any new soaps. She has started new medication or supplements around the time of her symptoms including CLA (conjugated linoleic acid) which she started taking around the time of her symptoms to increased muscle mass and for weight loss. Because she developed the breast symptoms, she discontinued this about 1 week ago. She also had taken the medication about 2 months ago for Graves' disease which she discontinued more than one month ago. She has not been sexually active since 2014 and . ROS: She denies respiratory, cardiac, or GI problems. She denies fever. She has had intermittent sore throats which she thinks may be related to some A LLERGIES. PE: Blood pressure: 153/92, Height: 5 feet 4 inches, Weight: 171 pounds, Temperature: 98.5, Pulse: 67. Pulse oximeter 97%. This is a well developed, well nourished, white female who is alert and orientedx3, in no acute distress. Breast exam: Breasts have a normal appearance bilaterally. Breasts are consistent with bilateral breast implants. Areola on each breasts do not and pierced significantly inflamed and are minimally raised. The areola regions are nontender, with the patient states the left areola is sensitive and has a different sensation normal. There is no ulceration and no nipple discharge. The sensitivity seems to be greatest in the inferior aspect of the left areola. There are no breast masses in the breasts are nontender. Axillary exam: Negative bilaterally. Impression: 1. 54-year-old menopausal female with recent onset of left breast areola sensitivity with altered sensation to touch and otherwise unremarkable breast exam. At this time, no evidence for inflammatory breast neoplasm. 2. History of bilateral breast implants Plan: 1. Bilateral diagnostic mammogram will be done today. 2. If unremarkable mammogram, we will proceed conservatively because of the minimal findings on exam. I have asked her to not over wash and to use minimal amounts of soap. 3. She will make an appointment for her well woman examination since it is been about 3 years since her last one. She will make this in approximately 3-4 weeks and at that time we can reevaluate the breasts and the sensitivity. She was instructed to call she is noticing any significant changes prior to her next appointment. Time spent with the patient: 15 minutes Past Medical History Past Medical History: Hypertension, Thyroid Disorder Additional Past Medical History / Comment(s): difficulty swallowing History of Any Multi-Drug Resistant Organisms: MRSA Date of last positivie culture/infection: 2012 MDRO Source:: Left axillary Past Surgical History: Breast Surgery, Cholecystectomy Past Anesthesia/Blood Transfusion Reactions: Motion Sickness Past Psychological History: ADD/ADHD Smoking Status: Never smoker Past Alcohol Use History: None Reported Past Drug Use History: None Reported - Past Family History Brother(s) Family Medical History: Deep Vein Thrombosis (DVT) Medications and Allergies Home Medications Medication Instructions Recorded Confirmed Type Ascorbic Acid [Vitamin C] 500 mg PO DAILY 09/19/17 10/21/19 History Cholecalciferol [Vitamin D3 (25 1,000 unit PO DAILY 10/21/19 10/21/19 History Mcg = 1000 Iu)] Glucos Sul 2Kcl/MSM/Chond/C/Mn 1 each PO DAILY 10/21/19 10/21/19 History [Glucosamine Chondroitin Cap] Magnesium 250 mg PO DAILY 10/21/19 10/21/19 History Multivitamin [Multivitamins Adult 1 tab PO DAILY 10/21/19 10/21/19 History Gummies] Allergies Allergy/AdvReac Type Severity Reaction Status Date / Time latex Allergy Rash/Hives Verified 10/21/19 13:53 shellfish derived [Shellfish] Allergy Nausea & Verified 10/21/19 13:53 Vomiting, Hives Exam Vital Signs Temp Pulse Resp BP Pulse Ox 10/21/19 13:56 98.5 F 67 18 153/92 97 Intake and Output 10/20/19 10/21/19 10/21/19 22:59 06:59 14:59 Other: Weight 77.564 kg
--- NOTE | 2019-10-22 08:11 | MM ---
Reason for exam: clinical finding. Last mammogram was performed 2 years and 9 months ago. History: Patient is postmenopausal. Implants in both breasts, 2002. Physical Findings: Dr. Portillo did breast exam. MG Diag Mamm Implants FANTA w CAD Bilateral CC, MLO, and ID view(s) were taken. Prior study comparison: January 16, 2017, bilateral MG screening mammo implant/CAD. June 30, 2015, bilateral MG screening mammo implant/CAD. The breast tissue is heterogeneously dense. This may lower the sensitivity of mammography. Bilateral breast prothesis. No significant new findings when compared with previous films. These results were verbally communicated with the patient and result sheet given to the patient on 10/21/19. ASSESSMENT: Benign, BI-RAD 2 RECOMMENDATION: Routine screening mammogram of both breasts in 1 year.
== END | disposition home or self-care (01) ==
LOC: WWCWWP 13:41
PROVIDERS: ATTEND Obstetrics & Gynecology
DX: N64.4 Mastodynia (principal); Z98.82 Breast implant status
CPT/HCPCS: 77066

== ENCOUNTER 2020-07-11 13:42 | Emergency (ER) | payer OTHER ==
[2020-07-11 13:59] VITALS: BP 130/78; PULSE 70; RESP 18; TEMP 98
[2020-07-11 14:46] LABS: Appearance,Urine Clear (Clear); Bacteria,Urine Rare /hpf; Bilirubin,Urine Negative (Negative); Blood,Urine Small (Negative); Color,Urine Yellow; Glucose,Urine (UA) Negative (Negative); Ketones,Urine Negative (Negative); Leukocyte Esterase,Urine Large (Negative); Nitrite,Urine Negative (Negative); PH, Urine 5.5 (5.0-8.0); Protein,Urine Negative (Negative); RBC,Urine 6 /hpf (0-5); Specific Gravity,Urine 1.019 (1.001-1.035); Squamous Epithelial Cell,Urine 2 /hpf (0-4); Urobilinogen,Urine <2.0 mg/dL (<2.0); WBC,Urine 12 /hpf (0-5)
--- NOTE | 2020-07-11 14:49 | ED ---
Female Urogenital HPI - General Chief complaint: Urogenital Stated complaint: KIDNEY PAIN Time Seen by Provider: 07/11/20 14:00 Source: patient Mode of arrival: ambulatory Limitations: no limitations - History of Present Illness Initial comments: Patient is a 55-year-old female presenting to emergency Department with complaints of urinary frequency and urgency that's been intermittent for the last 2 weeks. She states today she noticed some left-sided flank discomfort and was worried that she might have a kidney infection. She states the pain started about 2 weeks ago, she increase her water intake and started taking cranberry juice and seemed like her symptoms went away. She states over the last few days she's been having increase in dysuria and frequency along with the flank pain started today. She denies any fevers or chills, no nausea or vomiting. She admits to some lower abdominal pressure but no pain. She has history of hysterectomy, no other abdominal surgeries. She has no further complaints. Her vital signs are stable upon arrival. - Related Data Home Medications Medication Instructions Recorded Confirmed Ascorbic Acid [Vitamin C] 500 mg PO DAILY 09/19/17 10/21/19 Cholecalciferol [Vitamin D3 (25 1,000 unit PO DAILY 10/21/19 10/21/19 Mcg = 1000 Iu)] Glucos Sul 2Kcl/MSM/Chond/C/Mn 1 each PO DAILY 10/21/19 10/21/19 [Glucosamine Chondroitin Cap] Magnesium 250 mg PO DAILY 10/21/19 10/21/19 Multivitamin [Multivitamins Adult 1 tab PO DAILY 10/21/19 10/21/19 Gummies] Previous Rx's Medication Instructions Recorded Cephalexin [Keflex] 500 mg PO BID 5 Days #10 cap 07/11/20 Allergies Allergy/AdvReac Type Severity Reaction Status Date / Time latex Allergy Rash/Hives Verified 07/11/20 13:58 shellfish derived [Shellfish] Allergy Nausea & Verified 07/11/20 13:58 Vomiting, Hives Review of Systems ROS Statement: Those systems with pertinent positive or pertinent negative responses have been documented in the HPI. ROS Other: All systems not noted in ROS Statement are negative. Past Medical History Past Medical History: Hypertension, Thyroid Disorder Additional Past Medical History / Comment(s): difficulty swallowing History of Any Multi-Drug Resistant Organisms: MRSA Date of last positivie culture/infection: 2013 MDRO Source:: Left axillary Past Surgical History: Breast Surgery, Cholecystectomy Past Anesthesia/Blood Transfusion Reactions: Motion Sickness Past Psychological History: ADD/ADHD Smoking Status: Never smoker Past Alcohol Use History: None Reported Past Drug Use History: None Reported - Past Family History Brother(s) Family Medical History: Deep Vein Thrombosis (DVT) General Exam - General Exam Comments Initial Comments: GENERAL: Patient is well-developed and well-nourished. Patient is nontoxic and in no acute distress. HEAD: Atraumatic, normocephalic. EYES: Pupils equal round and reactive to light, extraocular movements intact, sclera anicteric, conjunctiva are normal. Eyelids were unremarkable. ENT: TMs normal, nares patent, oropharynx clear without exudates. Moist mucous membranes. NECK: Normal range of motion, supple without lymphadenopathy or JVD. LUNGS: Unlabored respirations. Breath sounds clear to auscultation bilaterally and equal. No wheezes rales or rhonchi. HEART: Regular rate and rhythm without murmurs, rubs or gallops. ABDOMEN: Soft, mild suprapubic discomfort on palpation, no areas of pain. normoactive bowel sounds. No guarding, no rebound. No masses appreciated. : Deferred MUSCULOSKELETAL: Normal extremities with adequate strength and normal range of motion, no pitting or edema. No clubbing or cyanosis. NEUROLOGICAL: Patient is alert and oriented x 3. Motor and sensory are also intact. Cranial nerves II through XII grossly intact. Symmetrical smile. Normal speech, normal gait. PSYCH: Normal mood, normal affect. SKIN: Warm, Dry, normal turgor, no rashes or lesions noted. Limitations: no limitations Course Vital Signs 07/11/20 13:56 Temperature 98.0 F Pulse Rate 70 Respiratory 18 Rate Blood Pressure 130/78 O2 Sat by Pulse 97 Oximetry Medical Decision Making - Medical Decision Making Patient is a 55-year-old female here with dysuria, frequency and urgency that management for 2 weeks along with some flank discomfort that started today. No fevers. Urine shows evidence for leukocyte esterase, bacteria and WBCs. Patient be started on Keflex for UTI. Patient is stable for discharge. Patient is in agreement with this plan of care. Return parameters were discussed with the patient and they verbalized understanding. Case discussed with Dr. Warren. - Lab Data Lab Results 07/11/20 Range/Units 14:40 Urine Color Yellow Urine Appearance Clear (Clear) Urine pH 5.5 (5.0-8.0) Ur Specific [place] 1.019 (1.001-1.035) Urine Protein Negative (Negative) Urine Glucose (UA) Negative (Negative) Urine Ketones Negative (Negative) Urine Blood Small H (Negative) Urine Nitrite Negative (Negative) Urine Bilirubin Negative (Negative) Urine Urobilinogen <2.0 (<2.0) mg/dL Ur Leukocyte Esterase Large H (Negative) Urine RBC 6 H (0-5) /hpf Urine WBC 12 H (0-5) /hpf Ur Squamous Epith Cells 2 (0-4) /hpf Urine Bacteria Rare H (None) /hpf Disposition Clinical Impression: Urinary tract infection Disposition: HOME SELF-CARE Condition: Stable Instructions (If sedation given, give patient instructions): Urinary Tract Infection in Women (ED) Additional Instructions: Please return to the Emergency Department if symptoms worsen or any other concerns. Take antibiotic as prescribed. Continue to increase water intake. Follow-up with your PCP. Prescriptions: Cephalexin [Keflex] 500 mg PO BID 5 Days #10 cap Is patient prescribed a controlled substance at d/c from ED?: No Referrals: Yuri Carrion MD [Primary Care Provider] - 1-2 days
== END 2020-07-11 15:11 | disposition home or self-care (01) ==
LOC: EC 13:42
DX: N39.0 Urinary tract infection, site not specified (principal); I10 Essential (primary) hypertension
CPT/HCPCS: 81001; 87086; 99283

== ENCOUNTER → 2020-08-10 | Outpatient (CLI) | payer OTHER ==
[2020-08-10 11:38] VITALS: BP 136/84; PULSE 75; RESP 18; TEMP 98.4
--- NOTE | 2020-08-10 12:32 | P.HPOB ---
History of Present Illness H&P Date: 08/10/20 Chief Complaint: The patient is here for her routine gynecologic exam. This is a 55-year-old with an LMP of 2012. The patient has been experiencing urinary symptoms. She was treated for a UTI with Keflex on 07/11/2020. She still has slight urinary urgency and urinary frequency without significant dysmenorrhea. She is otherwise without complaints and denies any postmenopausal bleeding. Review of Systems The patient has gained 7 pounds over the last year. She denies respiratory, cardiac, or G.I. problems. Past Medical History Past Medical History: Hypertension, Thyroid Disorder Additional Past Medical History / Comment(s): difficulty swallowing. 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 She had cervical dysplasia treated with a conization in 1997. History of Any Multi-Drug Resistant Organisms: MRSA Date of last positivie culture/infection: 2012 MDRO Source:: Left axillary Past Surgical History: Breast Surgery, Section, Cholecystectomy Additional Past Surgical History / Comment(s): Cold knife conization of the cervix 1997. Colonoscopy 2016. Breast augmentation with saline implants 2002. Past Anesthesia/Blood Transfusion Reactions: Motion Sickness Past Psychological History: ADD/ADHD, Depression Smoking Status: Never smoker Past Alcohol Use History: None Reported Past Drug Use History: None Reported Additional History: She is and has not been sexually active since 2018. 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 - Past Family History Brother(s) Family Medical History: Deep Vein Thrombosis (DVT) Father Family Medical History: Diabetes Mellitus Additional Family Medical History / Comment(s): Heart disease. Medications and Allergies Home Medications Medication Instructions Recorded Confirmed Type Ascorbic Acid [Vitamin C] 500 mg PO DAILY 09/19/17 08/10/20 History Cholecalciferol [Vitamin D3 (25 1,000 unit PO DAILY 10/21/19 08/10/20 History Mcg = 1000 Iu)] Magnesium 250 mg PO DAILY 10/21/19 08/10/20 History Multivitamin [Multivitamins Adult 1 tab PO DAILY 10/21/19 08/10/20 History Gummies] Allergies Allergy/AdvReac Type Severity Reaction Status Date / Time iodine Allergy Nausea & Unverified 08/10/20 11:34 Vomiting latex Allergy Rash/Hives Verified 08/10/20 11:34 shellfish derived [Shellfish] Allergy Nausea & Verified 08/10/20 11:34 Vomiting, Hives Exam Vital Signs Temp Pulse Resp BP Pulse Ox 08/10/20 11:35 98.4 F 75 18 136/84 98 Intake and Output 08/09/20 08/10/20 08/10/20 22:59 06:59 14:59 Other: Weight 79.832 kg Height 5 feet 4-1/2 inches, weight 176 pounds, BMI 29.7. This is a well-developed well-nourished white female who is alert and oriented times 3 in no acute distress. HEENT: Within normal limits. NECK: Supple without mass or thyromegaly. CHEST AND LUNGS: Clear to auscultation. HEART: Regular rate and rhythm. BREASTS: Are without mass or discharge. AXILLARY EXAM: Negative for adenopathy. BACK: Negative for CVA tenderness. ABDOMEN: Soft, nontender, without palpable masses. PELVIC EXAM: Normal external genitalia with mild atrophy. Cervix and vagina appear normal with mild atrophy. The cervix is slightly stenotic and has an appearance consistent with previous conization. There is no unusual discharge. There is no evidence of prolapse. The uterus is midposition, nongravid size and nontender. There is mild tenderness in the area of the bladder as well as in the right pelvic area. There are no palpable adnexal masses . The left side is nontender. RECTAL EXAM: No vaginal exam is negative for mass or tenderness and is negative for occult blood. EXTREMITIES: Nontender. IMPRESSION: 1. 55-year-old menopausal female with urinary urgency and frequency. 2. There is mild bladder tenderness as well as right adnexal tenderness. PLAN: 1. Pap smear cotest was performed. 2. Self breast awareness was discussed with the patient. 3. Osteoporosis prevention was discussed. I have stressed the importance of adequate calcium, vitamin D and regular exercise. Recommended amounts of calcium and vitamin D were also discussed. 4. Urine will be sent for urinalysis and urine culture with sensitivities. 5. Because of the right sided pelvic tenderness, pelvic ultrasound will be ordered. The order slip was given to the patient for this. 6. She was advised to return in one year for her annual well woman exam and as needed.
[2020-08-10 17:04] LABS: Appearance,Urine Clear (Clear); Bilirubin,Urine Negative (Negative); Blood,Urine Trace (Negative); Color,Urine Yellow; Glucose,Urine (UA) Negative (Negative); Ketones,Urine Negative (Negative); Leukocyte Esterase,Urine Negative (Negative); Mucus,Urine Rare /hpf; Nitrite,Urine Negative (Negative); PH, Urine 6.5 (5.0-8.0); Protein,Urine Negative (Negative); RBC,Urine 5 /hpf (0-5); Specific Gravity,Urine 1.024 (1.001-1.035); Squamous Epithelial Cell,Urine 1 /hpf (0-4); Urobilinogen,Urine <2.0 mg/dL (<2.0); WBC,Urine <1 /hpf (0-5)
--- NOTE | 2020-08-11 13:06 | P.PN ---
Progress Note - Text Progress Note Date: 08/11/20 OUTPATIENT FOLLOW-UP NOTE TEST(S)/RESULTS: Urinalysis done on 08/10/2020 showed trace blood and was otherwise unremarkable. METHOD OF NOTIFICATION: A message was left on the patient's voicemail indicating there is so far nothing to treat on the urinalysis as far as UTI. PATIENT COMMENTS: DIAGNOSIS: Doubt acute UTI DISCUSSION: Await urine culture. The trace blood could be residual from her recently treated urinary tract infection. PLAN: As above.
== END ==
LOC: WWCWWP 11:12
PROVIDERS: ATTEND Obstetrics & Gynecology
DX: R39.15 Urgency of urination (principal); R35.0 Frequency of micturition; R39.82 Chronic bladder pain; I10 Essential (primary) hypertension; F32.9 Major depressive disorder, single episode, unspecified
CPT/HCPCS: 81001; 87086

== ENCOUNTER → 2020-11-01 | Outpatient (CLI) | payer OTHER ==
--- NOTE | 2020-11-01 09:56 | US ---
EXAMINATION TYPE: US pelvic complete DATE OF EXAM: 11/01/2020 COMPARISON: 01/16/2017 CLINICAL HISTORY: R68.89 Pelvic Tenderness. RLQ tenderness, LMP 6yrs ago TECHNIQUE: TA. Transabdominal sonographic images of the pelvis were acquired. Date of LMP: 6yrs ago EXAM MEASUREMENTS: Uterus: 5.4 x 2.9 x 3.1 cm Endometrial Stripe: 0.3 cm Right Ovary: Not seen Left Ovary: 1.7 x 1.3 x 1.3cm 1. Uterus: Anteverted wnl 2. Endometrium: wnl 3. Right Ovary: not seen due to atrophy 4. Left Ovary: wnl 5. Bilateral Adnexa: wnl 6. Posterior cul-de-sac: wnl IMPRESSION: Right ovary not seen.
--- NOTE | 2020-11-03 12:13 | P.PN ---
Progress Note - Text Progress Note Date: 11/03/20 OUTPATIENT FOLLOW-UP NOTE TEST(S)/RESULTS: Pelvic ultrasound on 11/01/2020 was unremarkable. No adnexal masses were seen. METHOD OF NOTIFICATION: The patient was notified by phone. PATIENT COMMENTS: The patient denies any pelvic or abdominal pain. DIAGNOSIS: Unremarkable pelvic ultrasound. DISCUSSION: The pelvic ultrasound was recommended after her exam in July because of tenderness noted on the right side. This was shortly after she was treated for a urinary tract infection. It is possible that this tenderness is related to her recent UTI or possible GI tenderness. Since she is not having any issues with pain, no further workup is necessary. PLAN: She was advised to return in one year for her annual well woman exam.
== END | disposition home or self-care (01) ==
LOC: RADUSWWP 09:05
PROVIDERS: ATTEND Obstetrics & Gynecology
DX: N26.1 Atrophy of kidney (terminal) (principal)
CPT/HCPCS: 76856

== ENCOUNTER → 2021-06-14 | Outpatient (CLI) | payer OTHER ==
[2021-06-14 08:10] VITALS: BP 121/80; PULSE 77; RESP 17; TEMP 97.9
--- NOTE | 2021-06-14 08:54 | P.PN ---
Progress Note - Text Progress Note Date: 06/14/21 Problem visit Chief Complaint: Pain with bowel movements 2 months. HPI: This is a 56-year-old 014 with an LMP of 2012. The patient believes she is having problems with a hemorrhoid. During the past 2 months she has had pain with bowel movements at the anus. She occasionally has noticed a small amount of blood when wiping on occasion after a bowel movement. She has tried Tucks wipes and Preparation H suppositories without improvement. ROS: She denies respiratory or cardiac problems. GI: Some constipation with recent pain with bowel movements as above. : She denies any urinary problems. PE: Blood pressure: 121/80, Height: 5 feet 4 inches, Weight: 177 pounds, Temperature: 97.9, Pulse: 83. Pulse oximeter 97%. This is a well developed, well nourished, white female who is alert and orientedx3, in no acute distress. External genitalia: Mild atrophy without lesions. The perineum bordering the perianal region reveals a small hemorrhoid surrounded by a small area of erythema with associated pallor. There 2 small cracked areas in the skin. The inflamed area measures approximately 2 x 0.5 cm. Rectal exam reveals no significant internal hemorrhoids or tenderness. Through the vaginal opening I can see there is a small rectocele which increases to a grade 1-2 rectocele with Valsalva. Impression: 1. 56-year-old menopausal female with small external inflamed hemorrhoid bordering on the perineum/perianal junction. Differential diagnosis will also include very early lichen sclerosis. 2. Small rectocele. I doubt her discomfort is related to the rectocele. Plan: 1. Kenalog 0.1% cream twice a day. Once daily she will also apply petroleum jelly as a protective layer. This will be applied at a time different than when the Kenalog cream is being used. The prescription for Kenalog cream will be sent to my her pharmacy in [place]. 2. She'll try to keep her stools soft to avoid hard stools and constipation. 3. Mammogram is due and the order slip was given to the patient for this. 4. She will return in 2 months for her annual well woman examination and we can check this area again at that time. Consider biopsy if symptoms are not improving. Time spent with the patient: 20 minutes
== END ==
LOC: WWCWWP 07:49
PROVIDERS: ATTEND Obstetrics & Gynecology
DX: K64.8 Other hemorrhoids (principal); N81.6 Rectocele; Z91.041 Radiographic dye allergy status; Z91.040 Latex allergy status; Z91.013 Allergy to seafood

== ENCOUNTER → 2021-08-24 | Outpatient (CLI) | payer OTHER ==
--- NOTE | 2021-08-25 14:49 | MM ---
Reason for exam: screening (asymptomatic). Last mammogram was performed 1 year and 10 months ago. History: Patient is postmenopausal. Implants in both breasts, 2002. Physical Findings: A clinical breast exam by your physician is recommended on an annual basis and results should be correlated with mammographic findings. MG Screening Mammo Implant/CAD Bilateral CC, MLO, XCCL, and ID view(s) were taken. Prior study comparison: October 21, 2019, bilateral MG diag mamm implants FANTA w CAD. January 16, 2017, bilateral MG screening mammo implant/CAD. No significant changes when compared with prior studies. ASSESSMENT: Benign, BI-RAD 2 RECOMMENDATION: Routine screening mammogram of both breasts in 1 year.
== END | disposition home or self-care (01) ==
LOC: RADMAMWWP 07:20
PROVIDERS: ATTEND Obstetrics & Gynecology
DX: Z12.31 Encounter for screening mammogram for malignant neoplasm of breast (principal); Z78.0 Asymptomatic menopausal state
CPT/HCPCS: 77067